=== PATIENT | female | born 1950 | race Caucasian/White ===

== ENCOUNTER → 2017-07-20 | Outpatient (CLI) | payer MEDICARE, OTHER ==
[~2017-07-20] MED LIST: ACLI400A2 IH; APIX5TAB PO; CALC600T63 PO; CHOL400C10 PO; DILT120C4 PO; GLUC-232 PO; LEVO-3 PO; LORA10CA3 PO; OMEG500C5 PO
--- NOTE | 2017-07-20 15:52 | RADIOLOGY IMAGING REPORT ---
[place] [facility] [place] NAME: Alana Cobos : 1950 MR: [id number] V: [id number] EXAM DATE: ORDERING PHYSICIAN: MIKEY DOVE TECHNOLOGIST: Location: [facility] - [place] Patient: Alana Cobos : 1950 Visit/Account:[id number] Date of Sevice: 07/20/2017 BONE MINERAL DENSITY HISTORY: Osteopenia COMPARISON: None. FINDINGS: LUMBAR SPINE: Bone mineral density (BMD) measured from L1-L4 correlates with a Z-score of her 0.6 and a T-score of -0.6 which is normal as defined by the World Health Organization. The corresponding risk of fracture in the lumbar spine is not increased compared with a young adult reference population. This value h as decreased by 12.7% since the prior study. More than 5% change is considered significant. HIP: Bone mineral density (BMD) measured in the left hip or femoral neck region correlates with a Z-score of 0.5 and a T-score of -0.7 which is normal as defined by the World Health Organization. The corre sponding risk of fracture in the hip is not increased compared with a young adult reference populatio n. This value has decreased by 15.5% since the prior study. More than 5% change is considered signi ficant. Bone mineral density (BMD) measured in the left Femoral Neck region measures 0.936 g/cm2. IMPRESSION: 1. Lumbar spine: Normal. There has been decreased in the bone mineral density since the previous e xam. 2. Left Hip: Normal. There has been decrease in the bone mineral density since the previous exam. 3. Left Femoral Neck: Bone Mineral Density is 0.936 g/cm2. FRAX? WHO Fracture Risk Assessment Tool link: <http://www.shef.ac.uk/FRAX/tool.jsp?locationValue=9> PLEASE NOTE: 1) The World Health Organization defines low BMD as follows: T-score Normal > -1 Osteopenia < -1 and > -2.5 Osteoporosis < -2.5 without fractures Established osteoporosis < -2.5 with fractures 2) In general, you may wish to consider: Diagnosis Treatment Follow-up DEXA Normal BMD Prevention 2-3 years Osteopenia Prevention/therapy 1-2 years Osteoporosis Therapy Yearly 3) Fracture risk estimated from the T-score is more accurate for vertebral fractures (often spontane ous) than for hip fractures. Report Dictated By: David Quesada at 07/20/2017 3:47 PM Report E-Signed By: David Quesada at 07/20/2017 3:49 PM WSN:[id number]
--- NOTE | 2017-07-21 17:32 | RADIOLOGY IMAGING REPORT ---
FACILITY: [facility] PATIENT NAME: MARY PADGETT : [id number] MR: [id number] V: [id number] EXAM DATE: [id number] ORDERING PHYSICIAN: MIKEY DOVE TECHNOLOGIST: Kristin Allen PROCEDURE:BILATERAL DIGITAL SCREENING MAMMOGRAM WITH CAD ASSISTED INTERPRETATION & 3D TOMOSYNTHESIS COMPARISON:Prior mammograms 10/19/15, 06/15/13, 02/26/11 INDICATIONS:SCREENING FINDINGS: Extremely heterogeneous fibroglandular tissue is seen throughout the breasts. The parenchymal pattern has remained stable allowing for difference in mammographic technique & patient positioning. There is no evidence of malignant appearing mass, malignant appearing calcifications or other secondary sign of malignancy in either breast. DIAGNOSTIC CATEGORY 2--BENIGN FINDING. RECOMMENDATIONS: ROUTINE MAMMOGRAM AND CLINICAL EVALUATION. IMPRESSION: BIRADS 2: Benign finding No significant abnormality is seen Dictated by: Yahaira Fernandes M.D. on 07/21/2017 at 11:32 Transcribed by: SHO on 07/21/2017 at 12:51 Approved by: Yahaira Fernandes M.D. on 07/21/2017 at 17:31 [facility]
== END ==
LOC: MAMO 02:37
PROVIDERS: ATTEND Physician Assistant
DX: Z13.820 Encounter for screening for osteoporosis (principal); Z12.31 Encounter for screening mammogram for malignant neoplasm of breast; N95.8 Other specified menopausal and perimenopausal disorders
CPT/HCPCS: 77063; 77067; 77080

== ENCOUNTER → 2017-09-09 | Outpatient (CLI) | payer MEDICARE, OTHER ==
--- NOTE | 2017-09-09 20:04 | RADIOLOGY IMAGING REPORT ---
FACILITY: [facility] [place] PATIENT NAME: MARY PADGETT : [id number] MR: [id number] V: [id number] EXAM DATE: ORDERING PHYSICIAN: ELEUTERIO FARNSWORTH TECHNOLOGIST: Maxine Webb EXAMINATION:TWO-DIMENSIONAL ECHOCARDIOGRAPH REASON:PERSISTENT AFIB 2D Measurements (normal values in centimeters) LV endLV endRV endVent.LV PostAorticLeftPercent DiastolicSystolicDiastolicSeptumWallRootAtriumShortening (3.5-5.7)(0.9-2.6)(0.6-1.1)(0.6-1.1)(2.0-3.7)(1.9-4.0)(25-35%) [id number]% STROKE VOLUME: 30ml ESTIMATED EJECTION FRACTION:53% PARASTERNAL LONG AXIS: Overall left ventricular systolic function appears to be normal. Patient's in atrial fibrillation. No thrombi are noted & the left atrial appendage is not ween. The mitral valve & aortic valve appear to open normally. The right ventricle appears to contract normally. TAPSE is measured within normal ranges at 1.9. Chamber sizes appear to be normal. Color examination of the valves reveals a trace of mitral, tricuspid & aortic insufficiency present. PARASTERNAL SHORT AXIS: Again overall left ventricular systolic function appears to be normal. Right ventricle also appears to contract normally & chamber sizes appear to be normal. The aortic valve is trileaflet in configuration with a trace of aortic insufficiency. No stenosis is noted. There is a trace to mild amount of tricuspid insufficiency. The tricuspid regurgitation Vmax measured at 3.08m/sec. APICAL FOUR AND TWO CHAMBER: Normal left ventricular ejection fraction. Again the patient is in atrial fibrillation. Left atrial & right atrial volumes are measured within normal ranges at 19 & 22ml/m2. The aortic valve area is measured within normal ranges at 2.0cm2. Mitral valve appears to open normally. Trace to mild amount of mitral insufficiency is noted. SUBCOSTAL VIEW: No pericardial effusion was noted. No atrioseptal or ventriculoseptal defects were appreciated. OVERALL IMPRESSION: 1. Normal left ventricular ejection fraction of approximately 53% with normal chamber sizes. 2. The patient is in atrial fibrillation. No thrombi were noted but the left atrial appendage is not seen. 3. Right ventricle appears to contract normally. 4. A trace to mild amount of mitral & tricuspid insufficiency. Estimated right ventricular systolic pressures are slightly elevated at 41mm Hg which does include an estimated right atrial pressure of 3mm Hg indicating mild pulmonary hypertension & increased right ventricular systolic pressures. 5. A trace to mild amount of pulmonic insufficiency is noted & a trace amount of aortic insufficiency is noted. 6. In comparison to the examination done on 02/23/15 the only change has been that the right ventricular pressure has decreased from 53 to 41mm Hg. Dictated by: Sarah Prince M.D. on 09/09/2017 at 14:52 Transcribed by: LEILA on 09/09/2017 at 15:50 Approved by: Sarah Prince M.D. on 09/09/2017 at 20:02 [facility]
== END ==
LOC: US 00:57
PROVIDERS: ATTEND Internal Medicine Clinical Cardiac Electrophysiology
DX: I48.1 Persistent atrial fibrillation (principal); I34.0 Nonrheumatic mitral (valve) insufficiency; I07.1 Rheumatic tricuspid insufficiency; I27.20 Pulmonary hypertension, unspecified; I35.1 Nonrheumatic aortic (valve) insufficiency; I37.1 Nonrheumatic pulmonary valve insufficiency
CPT/HCPCS: 93306

== ENCOUNTER → 2017-09-10 | Outpatient (CLI) | payer MEDICARE, OTHER ==
--- NOTE | 2017-09-12 16:36 | RT HOLTER TEST ---
FACILITY: [facility] PATIENT NAME: MARY PADGETT : [id number] MR: [id number] V: [id number] EXAM DATE: ORDERING PHYSICIAN: ELEUTERIO FARNSWORTH TECHNOLOGIST: System Hook-up date: 2017-09-10 10:20:00 Duration: 24:14:00 Test Indications: PERSISTENT A-FIB Medications: Eliquis Metoprolol Levothyroxine Stiolto-respimat [place] [id number] QRS complexes 124 Ventricular ectopics which represent <1 % of total QRS comp. * Supraventricular ectopics which represent % of total QRS comp. * Paced QRS complexes which represent % of total QRS comp. VENTRICULAR ECTOPY 114 Isolated 0 Bigeminal Cycles 5 Couplets 0 Runs 0 Beats in Runs * Beats LONGEST at * BPM at :: -- * Beats FASTEST at * BPM at :: -- SUPRAVENTRICULAR ECTOPY * Isolated * Couplets * Runs * Beats in Runs * Beats LONGEST at * BPM at :: -- * Beats FASTEST at * BPM at :: -- HEART RATES 72 MIN at 03:30:54 2017-09-11 116 AVG 176 MAX at 10:23:57 2017-09-10 LONGEST RR 1.448 secs at 08:07:32 2017-09-11 S-T LEVELS Channel 1 -12.800 mm MIN at 10:20:00 2017-09-10 -12.800 mm MAX at 10:20:00 2017-09-10 Channel 2 -12.800 mm MIN at 10:20:00 2017-09-1012.800 mm MAX at 10:20:00 2017-09-10 Channel 3 -12.800 mm MIN at 10:20:00 2017-09-10.800 mm MAX at 10:20:00 2017-09-10 Atrial flutter with variable A-V block Premature ventricular complexes Confirmed by OLI VELAZQUEZ ([id number]) on 09/12/2017 4:36:09 PM Referred By: Overread By: OLI VELAZQUEZ
== END ==
LOC: RESP 02:43
PROVIDERS: ATTEND Internal Medicine Clinical Cardiac Electrophysiology
DX: I48.92 Unspecified atrial flutter (principal)
CPT/HCPCS: 93225

== ENCOUNTER → 2017-10-12 | Outpatient (CLI) | payer MEDICARE, OTHER ==
--- NOTE | 2017-10-14 13:29 | RT HOLTER TEST ---
FACILITY: [facility] [place] PATIENT NAME: MARY PADGETT : [id number] MR: [id number] V: [id number] EXAM DATE: ORDERING PHYSICIAN: ELEUTERIO FARNSWORTH TECHNOLOGIST: caesar Eastman-chica date: 2017-10-12 13:11:00 Duration: 25:32:00 Test Indications: A-FIB Medications: SEE LIST [id number] QRS complexes 47 Ventricular ectopics which represent <1 % of total QRS comp. 1 Supraventricular ectopics which represent <1 % of total QRS comp. * Paced QRS complexes which represent % of total QRS comp. VENTRICULAR ECTOPY 43 Isolated 0 Bigeminal Cycles 2 Couplets 0 Runs 0 Beats in Runs * Beats LONGEST at * BPM at :: -- * Beats FASTEST at * BPM at :: -- SUPRAVENTRICULAR ECTOPY 1 Isolated 0 Couplets 0 Runs 0 Beats in Runs * Beats LONGEST at * BPM at :: -- * Beats FASTEST at * BPM at :: -- HEART RATES 53 MIN at 05:40:16 2017-10-13 99 AVG 170 MAX at 21:54:23 2017-10-12 LONGEST RR 1.760 secs at 04:52:21 2017-10-13 S-T LEVELS Channel 1 -12.800 mm MIN at 13:11:00 2017-10-12 -12.800 mm MAX at 13:11:00 2017-10-12 Channel 2 -12.800 mm MIN at 13:11:00 2017-10-12 -12.800 mm MAX at 13:11:00 2017-10-12 Channel 3 -12.800 mm MIN at 13:11:00 2017-10-12 -12.800 mm MAX at 13:11:00 2017-10-12 The patient had one reported symptom event. She was in atrial fibrillation at a rate of 131 beats pe r minute, but no symptoms at the maximum heart rate of 170 beats per minute. She was in atrial fibrillation throughout the test with rare supraven tricular ectopic beats and rare ventricular ectopic beats. The average heart rate was 99 beats per minute. Confirmed by JUANPABLO WILDE ([id number]) on 10/14/2017 1:28:51 PM Referred By: Overread By: JUANPABLO WILDE
== END ==
LOC: RESP 02:05
PROVIDERS: ATTEND Internal Medicine Clinical Cardiac Electrophysiology
DX: I48.1 Persistent atrial fibrillation (principal)
CPT/HCPCS: 93225; 93226

== ENCOUNTER → 2018-01-11 | Outpatient (CLI) | payer MEDICARE, OTHER | LOC: LAB 14:06 | PROVIDERS: ATTEND Internal Medicine Clinical Cardiac Electrophysiology | DX: I48.1 Persistent atrial fibrillation (principal) | CPT/HCPCS: 36415; 82310; 82374; 82435; 82565; 82947; 84132; 84295; 84520 ==

== ENCOUNTER → 2018-09-21 | Outpatient (CLI) | payer MEDICARE, OTHER ==
--- NOTE | 2018-09-22 08:27 | RADIOLOGY IMAGING REPORT ---
FACILITY: [facility] PATIENT NAME: MARY PADGETT : [id number] MR: [id number] V: [id number] EXAM DATE: [id number] ORDERING PHYSICIAN: ELIZA THORPE TECHNOLOGIST: Debbie Bryan PROCEDURE:BILATERAL DIGITAL SCREENING MAMMOGRAM WITH CAD ASSISTED INTERPRETATION & 3D TOMOSYNTHESIS COMPARISON:Prior mammograms 07/20/17, 10/19/15, 06/15/13. INDICATIONS:screening FINDINGS: The breasts are heterogeneously dense which can obscure small masses. There is a potential area of architectural distortion in the upper portion of the Left breast in the middle 1/3 on the Left MLO view. This is best appreciated on Tomographic slice 20. Spot compression view is recommended. DIAGNOSTIC CATEGORY 0--INCOMPLETE: NEED ADDITIONAL IMAGING EVALUATION. RECOMMENDATIONS: ADDITIONAL MAMMOGRAPHIC VIEWS REQUIRED: LEFT BREAST. IMPRESSION: BIRADS 0: Incomplete. Additional views of the Left breast recommended as described. Dictated by: Yahaira Fernandse M.D. on 09/21/2018 at 16:04 Transcribed by: SHO on 09/22/2018 at 7:54 Approved by: Yahaira Fernandes M.D. on 09/22/2018 at 8:26 [facility]
== END ==
LOC: MAMO 01:19
PROVIDERS: ATTEND Family Medicine
DX: Z12.31 Encounter for screening mammogram for malignant neoplasm of breast (principal); R92.8 Other abnormal and inconclusive findings on diagnostic imaging of breast
CPT/HCPCS: 77063; 77067

== ENCOUNTER → 2018-10-13 | Outpatient (CLI) | payer MEDICARE, OTHER ==
--- NOTE | 2018-10-14 08:59 | RADIOLOGY IMAGING REPORT ---
FACILITY: [facility] PATIENT NAME: MARY PADGETT : [id number] MR: [id number] V: [id number] EXAM DATE: [id number] ORDERING PHYSICIAN: ELIZA THORPE TECHNOLOGIST: Debbie Bryan PROCEDURE:LEFT DIGITAL MAMMOGRAM DIAGNOSTIC WITH CAD ASSISTED INTERPRETATION & 3D TOMOSYNTHESIS REASON FOR STUDY: Further evaluation. FAMILY HISTORY OF BREAST CANCER: Mother. BREAST PROCEDURES/TREATMENTS: None. COMPARISON STUDIES: 09/21/18 MAMMOGRAM VIEWS OBTAINED: 2D & 3D Spot compression views in Left MLO projection. BREAST DENSITY: The breasts are heterogeneously dense which can obscure small masses. MAMMOGRAM FINDINGS: The focal asymmetry previously noted in the upper portion of the Left breast on the recent Left MLO view appears compressible and apparently represented a summation shadow. IMPRESSION: BIRADS 2: Benign finding. DIAGNOSTIC CATEGORY 2--BENIGN FINDING. RECOMMENDATIONS: ROUTINE MAMMOGRAM AND CLINICAL EVALUATION IN 1 YEAR. Dictated by: Yahaira Fernandes M.D. on 10/13/2018 at 15:59 Transcribed by: SHO on 10/14/2018 at 8:56 Approved by: Yahaira Fernandes M.D. on 10/14/2018 at 8:58 [facility]
== END ==
LOC: MAMO 00:49
PROVIDERS: ATTEND Family Medicine
DX: R92.8 Other abnormal and inconclusive findings on diagnostic imaging of breast (principal)
CPT/HCPCS: 77061; 77065